=== PATIENT | male | born 1930 | race Caucasian/White ===

== ENCOUNTER → 2017-02-18 | Outpatient (CLI) | payer OTHER, MEDICARE ==
[~2017-02-18] VITALS: Ht 177.8 cm; Wt 100.1 kg
[~2017-02-18] MED LIST: ANTIVERT25 MG PO; ASPIR 8181 MG PO; ATROVENT HFA14 GM INH; AZELASTINE137 MCG/0. NS; B-6 PO; CARVEDILOL12.5 MG PO; CITRACAL PLUS1 EAC1 PO; COZAAR 50 MG TA50 M2 PO; FOLIC ACID 40400 MCG PO; IRON325 PO; L-LYSINE500 MG PO; MIRALAX17 GM PO; MULTI VITAMIN1 EACH PO; NATURAL LUTEIN20 MG PO; OMEGA 3 FISH O1 EACH PO; PRESERVISION L1 EACH PO; TRICOR145 MG PO; TUMERIC PO; VITAMIN B-12500 MCG PO; VITAMIN D2000 UNIT PO; VITAMINC500 PO
--- NOTE | ~2017-02-18 | HPC ---
[facility] [address] [place] [address] PAIN MANAGEMENT CONSULTATION Name: SARAHJULIENWINDYSAMANTHAGrant Cervantes Room #: REG BETO Vonda#: [id number] Admission: 02/18/17 Attend Phys: Zak Huber MD Discharge: Date of : [birth year] Report #: [id number] THIS REPORT FOR: //name// CC: Demetrius Huber Followup visit for low back pain with radiculopathy. The patient is a delightful 87-year-old gentleman who [place]. He has low back pain with radiculopathy and has been receiving epidural injections for gnawing, throbbing, aching pain that is in his hips, radiating from his back. Epidural injection has been very helpful for him, providing significant reductions in pain for several months. The first injection gave him about 70% improvement for many months, the last injection 50%. He says he should have come in sooner. The eight months between injections is probably too long. 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 They have been noted changes in his medications. He is on a blood thinner and takes losartan, carvedilol, MiraLax, Fenofibrate, hydrochlorothiazide, Meclizine, Toprol, and some vitamins [id number]. PHYSICAL EXAMINATION: GENERAL: Really pleasant, sharp 87-year-old, moves easily from a sitting position and walks with antalgic features. He has no obvious risk for fall with his movements today. He uses a cane at times. VITAL SIGNS: Blood pressure is 126/56, heart rate 70, and BMI is 31.7. He has tenderness across his low back. EXTREMITIES: Straight leg raising reproduces pain into the hips. IMPRESSION: Low back pain with radiculopathy secondary to spinal stenosis as well as neural foraminal stenosis. Extruded disk at L4-L5. Much of this narrowing. RECOMMENDATIONS: Repeat epidural injection at L4-L5 under fluoroscopic guidance. PROCEDURE: He was taken to fluoroscopic suite for treatment, placed prone, skin prepped with ChloraPrep, skin anesthetized over the L4-L5 interspace. A 20-gauge Tuohy epidural needle advanced in the epidural space with loss of resistance technique. No blood or CSF was aspirated. A 1 mL of Omnipaque injected. Good spread of dye observed in the epidural space followed by 3 mL [address] [address] PAIN MANAGEMENT CONSULTATION Name: EMILIA BRYANT Helen Room #: REG Leona Ferrari#: [id number] Admission: 02/18/17 Attend Phys: Zak Huber MD Discharge: Date of : [birth year] Report #: [id number] 0.5% lidocaine mixed with 80 mg triamcinolone. He tolerated the procedure well and was observed for 45 minutes and discharged. Follow up as needed. By: [id number] Zak Huber MD /nt
[2017-02-18 14:19] VITALS: BP 126/56
== END | disposition home or self-care (01) ==
LOC: PAIN 06:56
DX: M51.36 Other intervertebral disc degeneration, lumbar region (principal); M48.06 Spinal stenosis, lumbar region; M54.16 Radiculopathy, lumbar region; G47.33 Obstructive sleep apnea (adult) (pediatric); Z79.899 Other long term (current) drug therapy; Z79.82 Long term (current) use of aspirin

== ENCOUNTER → 2017-06-20 | Outpatient (CLI) | payer OTHER, MEDICARE ==
[~2017-06-20] VITALS: Ht 177.8 cm; Wt 99.4 kg
--- NOTE | ~2017-06-20 | HPC ---
[facility] [place] [address] PAIN MANAGEMENT CONSULTATION Name: EMILIA BRYANT Helen Room #: REG BETO PastranaDai#: [id number] Admission: 06/20/17 Attend Phys: Zak Huber MD Discharge: Date of : [birth year] Report #: [id number] THIS REPORT FOR: //name// CC: Demetrius Huber DATE OF SERVICE: 06/20/2017 Followup visit for low back pain with radiculopathy. I last provided the patient with an epidural injection on 02/18/2017. He reports that for 1 month he had 100% pain relief and then after that was still quite a bit better for nearly 2-3 months. Pain is now returning, it is an 8/10. Pain is bilaterally into his hips and then from his low back. He describes it as an aching and throbbing sensation, worse with walking and standing and improved by rest. MEDICATIONS: Reviewed and reconciled. He is on no blood thinners. He takes losartan, carvedilol, MiraLax, TriCor, Atrovent, Astelin, meclizine, vitamin C, omega 3, lysine, vitamin B, folic acid, aspirin, turmeric. ALLERGIES: None. PHYSICAL EXAMINATION: GENERAL: Pleasant older gentleman. VITAL SIGNS: Blood pressure is 140/86, heart rate 78, respirations 20. BMI is 31.5. Discussed wellness and weight management. He does not smoke. EXTREMITIES: He moves from a standing position and ambulates without difficulty. Straight leg raising is positive bilaterally and radiating pain into the hips. DIAGNOSTIC DATA: MRI scan is reviewed. It shows disk desiccation and broad based circumferential bulge at L4-L5. There is mild central stenosis. There is mild lateral recess stenosis with effacement of the traversing right L5 nerve roots. IMPRESSION: Lumbar radiculopathy with good response to epidural injections in the past. PROCEDURE: Epidural steroid injection under fluoroscopic guidance. DESCRIPTION OF PROCEDURE: He was taken to the fluoroscopic suite, placed prone, skin prepped with ChloraPrep, skin anesthetized over the L4-L5 interspace. A 20-gauge Tuohy epidural needle advanced in the epidural space with loss of resistance. There was no blood or CSF aspirated. 1 mL of Omnipaque was injected with good spread of dye observed in the epidural space followed by 3 mL [facility] [address] [place] [address] PAIN MANAGEMENT CONSULTATION Name: MANNYSAMANTHAGrant Cervantes Room #: REG Leona Ferrari#: [id number] Admission: 06/20/17 Attend Phys: Zak Huber MD Discharge: Date of : [birth year] Report #: [id number] of 0.5% lidocaine mixed with 80 mg of triamcinolone. He tolerated the procedure well and was observed for 45 minutes and discharged. Follow up as needed. <ELECTRONICALLY SIGNED> By: Zak Huber MD 06/21/17 1322 1627 16 Zak Huber MD /mercedes
[2017-06-20 14:28] VITALS: BP 140/86
== END ==
LOC: PAIN 07:13
DX: M54.16 Radiculopathy, lumbar region (principal); M54.5 Low back pain; I10 Essential (primary) hypertension; Z79.82 Long term (current) use of aspirin; Z79.899 Other long term (current) drug therapy